=== PATIENT | male | born 1990 | race Caucasian/White ===

== ENCOUNTER 2023-08-28 08:01 | Emergency (ER) | payer OTHER, SELFPAY ==
[2023-08-28 08:09] VITALS: BP 142/79; PULSE 80; RESP 20; TEMP 36.6; O2SAT 100
--- NOTE | 2023-08-28 08:13 | ED.WOUNDLAC ---
HPI - Wound/Laceration General Chief Complaint: Wound/Laceration Stated Complaint: left hand finger lac Time Seen by Provider: 08/28/23 08:16 Source: patient, RN notes reviewed and old records reviewed Mode of arrival: ambulatory Limitations: no limitations History of Present Illness HPI narrative: 33 year old male who presents to [facility] care with complaints of sustaining laceration to his left ring finger within past hour prior to arrival when he cut it on a piece of sheet metal. Patient reports that his tetanus shot is not up to date. Patient is right hand dominant. Patient has some minimal bleeding to laceration area. Onset (ago): hour(s) (within past 1 hour) Location: other Extremity Location: Left: hand (ring finger martin mid aspect) Place: work Treatments prior to arrival: bandage Related Data Allergies Allergy/AdvReac Type Severity Reaction Status Date / Time No Known Allergies Allergy Verified 08/28/23 09:00 Review of Systems Review of Systems: CONSTITUTIONAL: Denies fever, chills, or sweats. CARDIOVASCULAR: Denies chest pain, palpitations, or edema. RESPIRATORY: Denies cough or dyspnea. SKIN: Reports laceration to the left martin aspect of mid ring finger which he cut on sheet metal this morning MUSCULOSKELETAL: Denies musculoskeletal pain NEUROLOGIC: Denies numbness, or weakness. All systems reviewed & are unremarkable except as noted in HPI and below PMFSH Past Medical History Medical History (Updated 08/29/23 @ 07:28 by Ana Luisa Britt NP) Open fracture of left tibia and fibula surgical repair with pins Wrist fracture left Social History Social History (Updated 08/28/23 @ 15:17 by Ana Luisa Britt NP) Smoking status: Current every day smoker Tobacco type: cigarettes Alcohol intake: current Alcohol use details: rare social Substance use: current Substance use type: marijuana Living arrangements: with family Additional living arrangements comments: does travel with work Gender identity (if verbalized by the patient): Male Comments At time of signature, agree with nursing past medical, surgical, social and family history. There is no relevant family history pertinent to the presenting complaint Exam Narrative: GENERAL: Well-appearing, well-nourished, and in no acute distress. HEAD: Normocephalic, atraumatic. NECK: Supple.no lymphadenopathy CHEST: Clear to auscultation. No respiratory distress. SAO2 100% on room air HEART: Regular rate and rhythm. No murmur heard. Normal peripheral pulses. EXTREMITIES: Normal range of motion. No edema. SKIN: Warm, dry, no rash. Reports 2cm flap type of laceration to the mid martin aspect of his left ring finger, patient has full mobility of his finger with some minimal bleeding noted, strong left radial pulse, no tingling or numbness reported to his finger with brisk capillary refill of nail bed. NEURO: No focal deficits. Alert and oriented x3. Course Course Level of Care: Express Care Visit Vital Signs Vital signs: Vital Signs Temperature 36.6 C 08/28/23 08:09 Pulse Rate 80 08/28/23 08:09 Respiratory Rate 20 08/28/23 08:09 Blood Pressure 142/79 H 08/28/23 08:09 Pulse Oximetry 100 08/28/23 08:09 Oxygen Delivery Room Air 08/28/23 08:09 Temperature 36.6 C 08/28/23 08:09 Pulse Rate 80 08/28/23 08:09 Respiratory Rate 20 08/28/23 08:09 Blood Pressure 142/79 H 08/28/23 08:09 Pulse Oximetry 100 08/28/23 08:09 Oxygen Delivery Room Air 08/28/23 08:09 reviewed Procedures Laceration 4th finger: Date: 08/28/23 Time: 08:30 Site: hand (4th finger martin mid aspect) Side (If applicable): left Size (cm): 2 Description: flap Depth: simple, single layer Local Anesthetic: lidocaine 1% Amount of anesthesia used (mL): 4 Pre-repair: wound explored and irrigated extensively ====== Skin Level ====== Skin layer closed
[2023-08-28] MEDS: TETANUS,DIPHTHERIA,AC PERTUSSIS ADULT (0.5 ML) BOOSTRIX IM (08:29)
== END 2023-08-28 09:05 | disposition home or self-care (01) ==
PROVIDERS: Emergency Provider Registered Nurse
DX: S61.215A Laceration without foreign body of left ring finger without damage to nail, initial encounter (principal); W26.8XXA Contact with other sharp object(s), not elsewhere classified, initial encounter; Z23 Encounter for immunization; F17.210 Nicotine dependence, cigarettes, uncomplicated; F12.90 Cannabis use, unspecified, uncomplicated
CPT/HCPCS: 12001; 90471; 90715; 99213; G0463